=== PATIENT | male | born 1975 | race Caucasian/White ===

== ENCOUNTER 2017-05-05 02:47 | Emergency (ER) | payer BC ==
[~2017-05-05] VITALS: Ht 182.9 cm; Wt 113.4 kg
[2017-05-05 02:53] VITALS: BP 152/90
[2017-05-05] MEDS ORDERED: ONDANSETRON HCL 4 MG/2 ML VIAL IM ONE (03:00)
[2017-05-05] MEDS ORDERED: HYDROmorphone HCL 2 MG/ML VL IM ONE (03:00)
[2017-05-05] MEDS ORDERED: KETOROLAC TROMETH 60MG/2ML VIAL IM ONE (03:15)
== END 2017-05-05 07:39 | disposition home or self-care (01) ==
LOC: ER 02:47 → EDBD 02:47 → ER 07:39
DX: G89.29 Other chronic pain (principal); M54.42 Lumbago with sciatica, left side; M51.26 Other intervertebral disc displacement, lumbar region; J44.9 Chronic obstructive pulmonary disease, unspecified; I10 Essential (primary) hypertension; F17.210 Nicotine dependence, cigarettes, uncomplicated
CPT/HCPCS: 72131; 93005; 96372; 99284; J1170; J1885; J2405